=== PATIENT | female | born 1935 | race Caucasian/White ===

== ENCOUNTER 2022-07-01 15:53 | Inpatient (IN) ==
--- NOTE | 2022-07-01 15:59 | Emergency Department Note ---
Impression & Plan Complete heart block, Chronic anticoagulation, Elevated troponin I level, Bradycardia, CHI (closed head injury), Syncope ED Provider Note NAME: RAISA HARRIS AGE: 86 SEX: F : 1935 ARRIVES VIA: Ambulance INFORMANT: Patient, ED PROVIDER(S): Christiano Heaton MD CHIEF COMPLAINT: Syncope, head injury, bradycardic MEDICAL DECISION MAKING: Patient presents due to concern for bradycardia and associated syncope. IV was established blood work was obtained CT of the head cervical spine and face ordered. EKG does show concern for complete heart block. Pacer pads were placed. I did speak and send the EKG to Dr. Gutierrez stated that he would be available for a pacemaker to be completed over the weekend if needed. Patient i s awake alert and following commands. Do not believe she requires an emergent pacemaker at this time. The patient's blood work shows a normal white count H&H and platelet count. The patient's kidney function is unremarkable with normal electrolytes. Patient's initial troponin is 566 but the patient has no chest pains or shortness of breath. Chest x-ray shows cardiomegaly. There is a 13 mm nodular density over the right lung base. Indeterminate. Head CT is negative. Face CT shows possible age-indeterminate irregularity of the nasal bone. Otherwise no fracture. Cervical spine CT is negative for fracture or dislocation. I did speak with the on-call hospitalist service Dr. Aguiar and the patient was admitted to the medicine service. Critical Care: I have personally spent 35 minutes of critical care time in direct management of this patient. This includes bedside care, interpretation of diagnostic studies, and testing, discussion with consultants, patient, and family members, and other require inpatient management activities. This 35 minutes is in excess of all separately billable procedures. Prior /Outside records reviewed: Did review the patient's wellness visit from [facility] but not yet been completed. Patient did have a wellness visit completed March 2022. Patient is a known history of A-fib on Xarelto hypertension PVD bradycardia. Patient's med list does show that the patient takes hydrochlorothiazide losartan and Xarelto. Differential diagnosis: Vasovagal event, dehydration, infection, hypoglycemia, electrolyte abnormalities, arrhythmia, pulmonary embolism, seizure, toxic, ICH among others were considered. Diagnostics, as interpreted by me: ECG: Complete heart block, bradycardic, ventricular rate of 31, wide QRS, prolonged QT. Cardiac monitoring: An order was placed for continuous cardiac monitoring. The monitor shows a rate of 35 with bradycardia rhythm. Patient was placed on pulse oximetry Medical decision rules: None Imaging studies: See below HPI: Patient presents from clinic due to concern for syncope and bradycardia. The patient reportedly had a syncopal event yesterday and states that she did not have any presyncopal symptoms. Patient states that she passed out and did hit her head. Patient does have some mild discomfort to the neck and head area. The patient does take Xarelto for known history of A-fib. The patient denies any chest pains or shortness of breath no abdominal pain no back pain or extremity pain. Patient denies any fevers chills nausea or vomiting. The patient did present for outpatient follow-up today due to the syncope but had a second syncopal event EMS was called and presented here for further evaluation treatment. PAST MEDICAL HISTORY: See Below PAST SURGICAL HISTORY: See Below SOCIAL HISTORY: See Below HOME MEDICATIONS: See Below ALLERGIES: See Below VITALS: See Below PHYSICAL EXAMINATION: GENERAL: NAD, wearing a mask, non-toxic. EYE EXAM: Normal conjunctiva. PERRL, no anisocoria and EOM's grossly intact w/o pain. Head: Periorbital ecchymosis. No significant TTP or obvious deformity. NECK: Supple, no nuchal rigidity, no adenopathy, mild midline mid cervical disc omfort without obvious step-offs. No signs of meningismus. FROM of the neck with good chin to chest and neck extension. No stridor. LUNGS: Clear to auscultation. Normal chest wall mechanics. HEART: Bradycardic, no MRG. ABDOMEN: Abdomen soft, non-tender, normo-active bowel sounds, no masses, no rebo und or guarding. BACK: No CVA TTP. SKIN: No rashes and no bruising. UPPER EXTREMITIES: Upper extremities are grossly normal. LOWER EXTREMITIES: Grossly normal, no edema. NEURO EXAM: A&O x3, cranial nerves II-XII grossly intact, normal speech, moves all 4 extremities. Past Med/Surg History Medical History Bradycardia Chronic anticoagulation Hx of breast cancer First Dx age 53, Completed Radiotherapy and Tamoxifen Recurrence 2014. Left mastectomy performed Followed by Oncology Hypertension Macular degeneration Followed by Ophthalmology Surgical History Hx of appendectomy Hx of cataract surgery Hx of hysterectomy Hx of left mastectomy (~2014) Family History Aunt Breast cancer Father Esophageal cancer Daughter Ovarian cancer Denies family history of Prostate cancer Myocardial infarction Lung cancer Colorectal cancer Social History Smoking Status: Former smoker Tobacco Type: Cigarettes Age Started Using Tobacco: 14; Age Quit Using Tobacco: 38; packs per day: 1; Smoking End Date: 48 years ago; Second Hand Exposure: No; Hx Alcohol Use: Yes Alcohol type: wine Alcohol Intake Frequency: 4 or More x per/Week Alcohol Intake Frequency Comment: 2 glasses a night with dinner Hx Substance Use: No Preferred Language: [place]ese Communication Ability: Effective Visual Impairment: Diminished Hearing Ability: Normal Speech Language Pathologist Assistant Required: No Beliefs That Will Affect Care: None marital status: / Current Living Situation: Alone current occupational status: retired How many Children do You have: 3 Other Information That Helps Us Care for You: No Feels Safe at Home: Yes Childhood Exposure to Second-Hand Smoke: Yes (father smoked ) caffeine: Yes (drinks coffee every morning ) during the past year weight has: remained stable Dental Care, Regularly: No Physical Activity Frequency: Does not Exercise Seatbelt Use: always Sunscreen Use: Yes (when she remembers to ) Do you think of yourself as: straight/heterosexual Assistive Devices: Denture - Upper and Glasses Allergies Allergies Allergy/AdvReac Type Severity Reaction Status Date / Time No Known Allergies Allergy Verified 07/01/22 14:49 Home Meds Home Medications Medication Instructions Recorded Confirmed melatonin 12 mg tablet mg PO .qhs 03/22/22 07/01/22 Previous Rx's Medication Instructions Recorded losartan 25 mg tablet 25 mg PO DAILY #90 tabs 07/12/21 anastrozole 1 mg tablet 1 mg PO DAILY #90 tabs 07/14/21 hydrochlorothiazide 25 mg tablet See Rx Instructions .Route 04/05/22 .COMPLEX #45 tabs rivaroxaban 15 mg tablet (Xarelto) 15 mg PO DAILY #30 tabs 04/12/22 Results & Data (ED) Vital Signs Vital Signs - 24 hr 07/01/22 16:04 07/01/22 16:05 Pulse Rate 31 L 31 L Respiratory Rate 12 Respiratory Effort / Characteristics Non-Labored Spontaneous Respiratory Depth Normal Respiratory Pattern Regular Blood Pressure 136/57 L Blood Pressure Mean 83 Pulse Oximetry 95 Oxygen Delivery Method Room Air Sepsis Recent Fever Within 48 Hours No Sepsis New/Unexplained Change in Mental Status No Sepsis Action Taken by Nursing No Action Required Home Medications Current Medication List: was personally reviewed by me Laboratory Data Attestation: I reviewed the patient's lab results. 07/01/22 16:08 07/01/22 16:08 Lab Results 07/01/22 07/01/22 07/01/22 Range/Units 16:03 16:08 16:08 WBC 7.41 (4.8-10.8) K/ul RBC 4.21 (4.20-5.40) M/uL Hgb 13.1 (12.0-16.0) g/dl Hct 39.8 (37.0-47.0) % MCV 94.5 (80.0-100.0) fL MCH 31.1 (25.0-34.0) pg MCHC 32.9 (32.0-36.0) g/dL RDW Std Deviation 47.0 H (36.4-46.3) fL RDW Coeff of Lilia 13.7 (11.5-14.5) % Plt Count 222 (130-400) K/uL MPV 10.3 (9.4-12.4) fL Immature Gran % (Auto) 0.4 % Neut % (Auto) 66.1 % Lymph % (Auto) 24.4 % [place] % (Auto) 7.2 % Eos % (Auto) 1.2 % Baso % (Auto) 0.7 % Neut # (Auto) 4.90 (1.40-6.50) K/uL Lymph # (Auto) 1.81 (1.2-3.4) K/uL [place] # (Auto) 0.53 (0.11-0.59) K/uL Eos # (Auto) 0.09 (0-0.50) K/uL Baso # (Auto) 0.05 (0-0.2) K/uL Immature Gran # (Auto) 0.03 (0.01-0.20) K/uL PT 10.9 (9.0-12.0) Seconds INR 1.0 (0.9-1.1) APTT 27.6 (21.0-31.0) Seconds PTT Ratio 1.0 Sodium (136-145) mmol/L Potassium (3.5-5.1) mmol/L Chloride (98-107) mmol/L Carbon Dioxide (21-32) mmol/L Anion Gap (3-11) BUN (6-23) mg/dl Creatinine (0.6-1.2) mg/dl Est Cr Clr Drug Dosing ml/min Est GFR ( Amer) ml/min Est GFR (Non-Af Amer) ml/min BUN/Creatinine Ratio (10-20) Glucose (70-99(Fasting)) mg/dl POC Glucose 122 H (70-99) mg/dl Calcium (8.5-10.1) mg/dl Phosphorus (2.5-4.9) mg/dl Magnesium (1.7-2.4) mg/dl Total Bilirubin (0.2-1.0) mg/dl AST (13-39) U/L ALT (7-52) U/L Alkaline Phosphatase (34-104) U/L Troponin I High Sens (0-14) pg/ml Total Protein (6.0-8.3) gm/dl Albumin (3.4-5.0) gm/dl Globulin (2.5-4.0) gm/dl Albumin/Globulin Ratio (0.9-2) TSH (0.300-4.500) uIu/ml SARS-CoV-2, RNA, NAAT (NEGATIVE) 07/01/22 07/01/22 07/01/22 Range/Units 16:08 16:08 16:26 WBC (4.8-10.8) K/ul RBC (4.20-5.40) M/uL Hgb (12.0-16.0) g/dl Hct (37.0-47.0) % MCV (80.0-100.0) fL MCH (25.0-34.0) pg MCHC (32.0-36.0) g/dL RDW Std Deviation (36.4-46.3) fL RDW Coeff of Lilia (11.5-14.5) % Plt Count (130-400) K/uL MPV (9.4-12.4) fL Immature Gran % (Auto) % Neut % (Auto) % Lymph % (Auto) % [place] % (Auto) % Eos % (Auto) % Baso % (Auto) % Neut # (Auto) (1.40-6.50) K/uL Lymph # (Auto) (1.2-3.4) K/uL [place] # (Auto) (0.11-0.59) K/uL Eos # (Auto) (0-0.50) K/uL Baso # (Auto) (0-0.2) K/uL Immature Gran # (Auto) (0.01-0.20) K/uL PT (9.0-12.0) Seconds INR (0.9-1.1) APTT (21.0-31.0) Seconds PTT Ratio Sodium 138 (136-145) mmol/L Potassium 3.6 (3.5-5.1) mmol/L Chloride 102 (98-107) mmol/L Carbon Dioxide 27 (21-32) mmol/L Anion Gap 9 (3-11) BUN 17 (6-23) mg/dl Creatinine 1.07 (0.6-1.2) mg/dl Est Cr Clr Drug Dosing 39.7 ml/min Est GFR ( Amer) 53.7 ml/min Est GFR (Non-Af Amer) 46.3 ml/min BUN/Creatinine Ratio 15.9 (10-20) Glucose 129 H (70-99(Fasting)) mg/dl POC Glucose (70-99) mg/dl Calcium 8.8 (8.5-10.1) mg/dl Phosphorus 3.1 (2.5-4.9) mg/dl Magnesium 2.3 (1.7-2.4) mg/dl Total Bilirubin 0.6 (0.2-1.0) mg/dl AST 30 (13-39) U/L ALT 18 (7-52) U/L Alkaline Phosphatase 65 (34-104) U/L Troponin I High Sens 566.5 H* (0-14) pg/ml Total Protein 6.8 (6.0-8.3) gm/dl Albumin 4.0 (3.4-5.0) gm/dl Globulin 2.8 (2.5-4.0) gm/dl Albumin/Globulin Ratio 1.4 (0.9-2) TSH 2.758 (0.300-4.500) uIu/ml SARS-CoV-2, RNA, NAAT NEGATIVE (NEGATIVE) Imaging Data Radiologist's Impression: Cervical Spine CT 07/01/22 16:07 CT SCAN OF THE CERVICAL SPINE CLINICAL HISTORY: Fall. Neck pain. COMPARISON STUDY: No priors. TECHNIQUE: CT scan of the cervical spine is performed from the skull base to the upper thoracic spine. Images are reviewed in the axial, sagittal, and coronal planes. IV contrast was not administered for this examination. A dose lowering technique was utilized adhering to the principles of ALARA. CT DOSE: 1778.53 mGy.cm FINDINGS: Skeletal structures: The skeletal structures are osteopenic. There is no evidence of fracture or subluxation involving the cervical spine. Vertebral body height is maintained. There is minimal anterolisthesis at C3-C4. Alignment is otherwise preserved. There is straightening of the cervical lordosis with reversal centered at C5. Anterior osteophytes are seen throughout. The odontoid process and lateral masses are intact. The atlantoaxial articulation is preserved noting productive degenerative change. The spinous processes appear in tact. There is moderate multilevel cervical spondylosis. Uncovertebral and facet arthropathy contribute to neural foraminal narrowing at several levels. Intervertebral discs: There is moderate to severe disc space narrowing at C4-C5 and C5-C6, C6-C7, and C7-T1. Mild narrowing is seen at the remaining cervical levels. Central canal: Widely patent. Soft tissues: The prevertebral and paraspinous soft tissues are within normal limits. Calvarium: The visualized calvarium at the skull base appears intact. Brain parenchyma: Partially visualized brain parenchyma at the skull base is within normal limits noting age-related involutional change. Sinuses and mastoids: The visualized paranasal sinuses are clear. The mastoid air cells are well pneumatized. Cerumen is noted in the external auditory canals. Lung apices: Clear as visualized. IMPRESSION: 1. There is no evidence of fracture or subluxation involving the cervical spine. 2. Osteopenia and spondylotic change as above. ACT 112: Negative or not required by law. Electronically signed by: Chaz Nunn M.D. 07/01/2022 4:[address] 07/01/22 16:07 CT facial bones wo con CLINICAL HISTORY: fall, head strike, raccoons eyes TECHNIQUE: Multidetector row helical CT of the maxillofacial bones was performed without administration of intravenous contrast, and processed with bone and soft tissue algorithms. Coronal and sagittal reformations were obtained. Automated dose lowering techniques and/or adjustment according to patient size were utilized for this exam. Comparison: None available at the time of this dictation. FINDINGS: There is irregularity of the nasal bone which may be chronic. The mandible is intact. The temporomandibular joints are anatomically aligned. Pterygoid plates are intact. Zygomatic arches are intact. The globes are normal and symmetric, without proptosis, obvious disruption or l ens dislocation. There is no orbital radiopaque foreign body. The orbital roa are intact. The retrobulbar fat is without evidence of disruption. Extraocular muscles are normal and symmetric. Optic nerve sheath complexes are normal in course and caliber. Imaged portions of the paranasal sinuses and mastoid air cells are clear. Mild fat stranding is seen in the left greater than right maxillary soft tissues. IMPRESSION: Irregularity of the nasal bones is age-indeterminate and correlation with point tenderness is recommended. Otherwise no acute fracture is seen. Mild soft tissue stranding is seen in the maxilla and nose. ACT 112: Negative or not required by law. Electronically signed by: Seb Villanueva M.D. 07/01/2022 4:[address] 07/01/22 16:07 CT SCAN OF THE BRAIN WITHOUT IV CONTRAST CLINICAL HISTORY: Head injury. COMPARISON STUDY: No priors. TECHNIQUE: Unenhanced axial CT scan of the brain is performed from the vertex to the skull base. A dose lowering technique was utilized adhering to the principles of ALARA. FINDINGS: Brain parenchyma: There is age-related involutional change noting moderate subcortical and periventricular microangiopathic disease. There is no hemorrhage, mass effect, or evidence of acute territorial ischemia by CT criteria. Jolly-white matter differentiation is preserved. No extra-axial fluid collection is seen. Ventricles, sulci, cisterns: Prominent secondary to involutional change. Intracranial vasculature: There is atherosclerotic calcification of the cavernous carotid arteries. Soft tissues: There is a small frontal scalp hematoma. Calvarium: The skeletal structures are osteopenic. No depressed calvarial fracture is seen. Sinuses and mastoids: The visualized paranasal sinuses are clear. The mastoid air cells are well pneumatized. Orbits: The bony orbits are grossly intact. IMPRESSION: There is no hemorrhage, mass effect, or evidence of acute territorial ischemia by CT criteria. ACT 112: Negative or not required by law. Electronically signed by: Chaz Nunn M.D. 07/01/2022 4:23 PM Chest X-Ray 07/01/22 16:08 SINGLE VIEW CHEST CLINICAL HISTORY: Syncope. FINDINGS: An AP, portable, upright chest radiograph is obtained. No prior studies are available for comparison at the time of dictation. The heart is enlarged in its atherosclerotic calcification of the thoracic aorta. The pulmonary vasculature is noncongested. Nonspecific interstitial thickening is likely chronic. There is bibasilar scarring/atelectasis. No airspace consolidation or large pleural effusion is identified. An indeterminant 13 mm nodular density projects over the right lung base. No pneumothorax is seen. The skeletal structures are osteopenic. The bony thorax is grossly intact. Surgical clips project over the the right axilla. A clip also projects over the left upper chest. IMPRESSION: 1. Cardiomegaly with no acute cardiopulmonary abnormality. 2. A 13 mm nodular density projects over the right lung base. This is indeterminant and may represent artifact/summation of shadows. Follow-up with a PA and lateral examination is recommended for reassessment. ACT 112: Negative or not required by law. Electronically signed by: Chaz Nunn M.D. 07/01/2022 4:51 PM Discharge Plan Visit Data Chief Complaint: Syncope Stated Complaint: SYNCOPE ED Provider: Christiano Heaton Discharge Problem: Complete heart block, Chronic anticoagulation, Elevated troponin I level, Daniel ycardia, CHI (closed head injury), Syncope Patient Disposition: Admitted As Inpatient Discharge Instructions Interventions: ED Discharge Assessment Last Done: 07/01/22 18:00
--- NOTE | 2022-07-01 16:26 | CT Scan Report ---
CT SCAN OF THE BRAIN WITHOUT IV CONTRAST CLINICAL HISTORY: Head injury. COMPARISON STUDY: No priors. TECHNIQUE: Unenhanced axial CT scan of the brain is performed from the vertex to the skull base. A do se lowering technique was utilized adhering to the principles of ALARA. FINDINGS: Brain parenchyma: There is age-related involutional change noting moderate subcortical and periventri cular microangiopathic disease. There is no hemorrhage, mass effect, or evidence of acute territorial ischemia by CT criteria. Jolly-white matter differentiation is preserved. No extra-axial fluid collec tion is seen. Ventricles, sulci, cisterns: Prominent secondary to involutional change. Intracranial vasculature: There is atherosclerotic calcification of the cavernous carotid arteries. Soft tissues: There is a small frontal scalp hematoma. Calvarium: The skeletal structures are osteopenic. No depressed calvarial fracture is seen. Sinuses and mastoids: The visualized paranasal sinuses are clear. The mastoid air cells are well pneu matized. Orbits: The bony orbits are grossly intact. IMPRESSION: There is no hemorrhage, mass effect, or evidence of acute territorial ischemia by CT margy sotomayor. ACT 112: Negative or not required by law. Electronically signed by: Chaz Nunn M.D. 07/01/2022 4:23 PM
--- NOTE | 2022-07-01 16:31 | CT Scan Report ---
CT SCAN OF THE CERVICAL SPINE CLINICAL HISTORY: Fall. Neck pain. COMPARISON STUDY: No priors. TECHNIQUE: CT scan of the cervical spine is performed from the skull base to the upper thoracic spine . Images are reviewed in the axial, sagittal, and coronal planes. IV contrast was not administered fo r this examination. A dose lowering technique was utilized adhering to the principles of ALARA. CT DOSE: 1778.53 mGy.cm FINDINGS: Skeletal structures: The skeletal structures are osteopenic. There is no evidence of fracture or subl uxation involving the cervical spine. Vertebral body height is maintained. There is minimal anteroli sthesis at C3-C4. Alignment is otherwise preserved. There is straightening of the cervical lordosis w ith reversal centered at C5. Anterior osteophytes are seen throughout. The odontoid process and later al masses are intact. The atlantoaxial articulation is preserved noting productive degenerative farmer e. The spinous processes appear intact. There is moderate multilevel cervical spondylosis. Uncoverteb ral and facet arthropathy contribute to neural foraminal narrowing at several levels. Intervertebral discs: There is moderate to severe disc space narrowing at C4-C5 and C5-C6, C6-C7, and C7-T1. Mild narrowing is seen at the remaining cervical levels. Central canal: Widely patent. Soft tissues: The prevertebral and paraspinous soft tissues are within normal limits. Calvarium: The visualized calvarium at the skull base appears intact. Brain parenchyma: Partially visualized brain parenchyma at the skull base is within normal limits not ing age-related involutional change. Sinuses and mastoids: The visualized paranasal sinuses are clear. The mastoid air cells are well pneu matized. Cerumen is noted in the external auditory canals. Lung apices: Clear as visualized. IMPRESSION: 1. There is no evidence of fracture or subluxation involving the cervical spine. 2. Osteopenia and spondylotic change as above. ACT 112: Negative or not required by law. Electronically signed by: Chaz Nunn M.D. 07/01/2022 4:28 PM
--- NOTE | 2022-07-01 16:32 | CT Scan Report ---
CT facial bones wo con CLINICAL HISTORY: fall, head strike, raccoons eyes TECHNIQUE: Multidetector row helical CT of the maxillofacial bones was performed without administrati on of intravenous contrast, and processed with bone and soft tissue algorithms. Coronal and sagittal reformations were obtained. Automated dose lowering techniques and/or adjustment according to patient size were utilized for this exam. Comparison: None available at the time of this dictation. FINDINGS: There is irregularity of the nasal bone which may be chronic. The mandible is intact. The temporomand ibular joints are anatomically aligned. Pterygoid plates are intact. Zygomatic arches are intact. The globes are normal and symmetric, without proptosis, obvious disruption or lens dislocation. Ther e is no orbital radiopaque foreign body. The orbital roa are intact. The retrobulbar fat is without evidence of disruption. Extraocular muscles are normal and symmetric. Optic nerve sheath complexes are normal in course and caliber. Imaged portions of the paranasal sinuses and mastoid air cells are clear. Mild fat stranding is seen in the left greater than right maxillary soft tissues. IMPRESSION: Irregularity of the nasal bones is age-indeterminate and correlation with point tenderness is recomme nded. Otherwise no acute fracture is seen. Mild soft tissue stranding is seen in the maxilla and nose . ACT 112: Negative or not required by law. Electronically signed by: Seb Villanueva M.D. 07/01/2022 4:31 PM
[2022-07-01 16:43] LABS: Basophils # (auto) 0.05 K/uL (0-0.2); Basophils % (auto) 0.7 %; Eosinophils # (auto) 0.09 K/uL (0-0.50); Eosinophils % (auto) 1.2 %; Hematocrit (blood only) 39.8 % (37.0-47.0); Hemoglobin 13.1 g/dl (12.0-16.0); Immature Granulocytes # (auto) 0.03 K/uL (0.01-0.20); Immature Granulocytes % (auto) 0.4 %; Lymphocytes # (auto) 1.81 K/uL (1.2-3.4); Lymphocytes % (auto) 24.4 %; Mean Corpuscular Hemoglobin 31.1 pg (25.0-34.0); Mean Corpuscular Hgb Conc 32.9 g/dL (32.0-36.0); Mean Corpuscular Volume 94.5 fL (80.0-100.0); Mean Platelet Volume 10.3 fL (9.4-12.4); Monocytes # (auto) 0.53 K/uL (0.11-0.59); Monocytes % (auto) 7.2 %; Neutrophils % (auto) 66.1 %; Platelet Count 222 K/uL (130-400); RDW Coefficient of Variation 13.7 % (11.5-14.5); Red Blood Count 4.21 M/uL (4.20-5.40); White Blood Count 7.41 K/ul (4.8-10.8)
[2022-07-01 16:46] LABS: Albumin Globulin Ratio 1.4 (0.9-2); BUN Creatinine Ratio 15.9 (10-20); Bilirubin,Total 0.6 mg/dl (0.2-1.0); Calcium 8.8 mg/dl (8.5-10.1); Creatinine Clr Calc Pharmacy 39.7 ml/min; Est GFR (African American) 53.7 ml/min; Est GFR (Non-African American) 46.3 ml/min; Globulin 2.8 gm/dl (2.5-4.0); Magnesium 2.3 mg/dl (1.7-2.4); Phosphorus 3.1 mg/dl (2.5-4.9); Potassium 3.6 mmol/L (3.5-5.1); Total Protein 6.8 gm/dl (6.0-8.3)
--- NOTE | 2022-07-01 16:53 | XRay Report ---
SINGLE VIEW CHEST CLINICAL HISTORY: Syncope. FINDINGS: An AP, portable, upright chest radiograph is obtained. No prior studies are available for c omparison at the time of dictation. The heart is enlarged in its atherosclerotic calcification of the thoracic aorta. The pulmonary vasculature is noncongested. Nonspecific interstitial thickening is li trev chronic. There is bibasilar scarring/atelectasis. No airspace consolidation or large pleural eff usion is identified. An indeterminant 13 mm nodular density projects over the right lung base. No pne umothorax is seen. The skeletal structures are osteopenic. The bony thorax is grossly intact. Surgica l clips project over the the right axilla. A clip also projects over the left upper chest. IMPRESSION: 1. Cardiomegaly with no acute cardiopulmonary abnormality. 2. A 13 mm nodular density projects over the right lung base. This is indeterminant and may represent artifact/summation of shadows. Follow-up with a PA and lateral examination is recommended for reasse ssment. ACT 112: Negative or not required by law. Electronically signed by: Chaz Nunn M.D. 07/01/2022 4:51 PM
[2022-07-01 17:04] LABS: Troponin I High Sensitivity 566.5 pg/ml (0-14)
--- NOTE | 2022-07-01 17:19 | History & Physical Report ---
Date of Service July 01, 2022 Assessment & Plan (1) Complete heart block: Plan: Bedrest Keep pacing pads on at all times. Given stability emergent temporary pacing wire not required at this time Consult cardiology - discussed with Dr Wolf and planning on pacemaker tomorrow. (2) Elevated troponin I level: Plan: Suspect secondary to CHB, HTN and syncopal episode. No symptoms suggestive of acute coronary syndrome. TTE (3) CHI (closed head injury): Plan: Possible nasal bone fracture - supportive care only (4) Syncope: Plan: Suspect secondary to CHB as above (5) Hypertension: Plan: Continue losartan, hold HCTZ pre-pacemaker insertion Hydralazine 5mg IV q4h PRN for sBP > 180 (6) Atrial fibrillation: Plan: Paroxysmal Hold Xarelto for pacemaker insertion Plan VTE Prophylaxis - hold Xarelto Diet - heart healthy, NPO after midnight Disposition - admit to PCU Admission and Anticipated Discharge Date Admission Date: July 01, 2022 History of Present Illness Primary Care Provider: Renato Pennington DO Yessi Martinez is an 86 year old female who presents to the ER due to syncope. Initial episode occurred while on the toilet yesterday around midday. [place] dizzy prior to losing consciousness and fell flat on her face. When she came to she reports there was a lot of blood. She managed to call her son who helped her get up and cleaned up. She arranged an appointment with her PCP office today but while in the car on the way there she had a further loss of consciousness episode and a convulsion followed by nausea following the episode. On arrival at her PCP office EMS were called and brought her to the ER. Only recent medication change has been her first injection of Prolia was on afternoon. No current infection signs or symptoms. No chest pain or shortness of breath. In the ER EKG was concerning for complete heart block however she was asymptomatic while in bed. ER provider discussed with Dr Wolf and no plan for temporary pacing wire at this time given she is stable. Of note she had a monitor in December 2021 showing 3 second pauses due to non-conducted p waves at that time. She is on Xarelto for paroxysmal atrial fibrillation which she last took around 9am yesterday. Allergies Allergy/AdvReac Type Severity Reaction Status Date / Time No Known Allergies Allergy Verified 07/01/22 14:49 Home Medications Medication Instructions Recorded Confirmed Type losartan 25 mg tablet 25 mg PO DAILY #90 tabs 07/12/21 07/01/22 Rx anastrozole 1 mg tablet 1 mg PO DAILY #90 tabs 07/14/21 07/01/22 Rx melatonin 12 mg tablet mg PO .qhs 03/22/22 07/01/22 History hydrochlorothiazide 25 mg tablet See Rx Instructions .Route 04/05/22 07/01/22 Rx .COMPLEX #45 tabs rivaroxaban 15 mg tablet (Xarelto) 15 mg PO DAILY #30 tabs 04/12/22 07/01/22 Rx Past Med/Surg History Medical History Bradycardia Chronic anticoagulation Hx of breast cancer First Dx age 53, Completed Radiotherapy and Tamoxifen Recurrence 2014. Left mastectomy performed Followed by Oncology Hypertension Macular degeneration Followed by Ophthalmology Surgical History Hx of appendectomy Hx of cataract surgery Hx of hysterectomy Hx of left mastectomy (~2014) Family History Aunt Breast cancer Father Esophageal cancer Daughter Ovarian cancer Denies family history of Prostate cancer Myocardial infarction Lung cancer Colorectal cancer Social History Smoking Status: Former smoker Tobacco Type: Cigarettes Age Started Using Tobacco: 14; Age Quit Using Tobacco: 38; packs per day: 1; Smoking End Date: 48 years ago; Second Hand Exposure: No; Hx Alcohol Use: Yes Alcohol type: wine Alcohol Intake Frequency: 4 or More x per/Week Alcohol Intake Frequency Comment: 2 glasses a night with dinner Hx Substance Use: No Preferred Language: Romanian Communication Ability: Effective Visual Impairment: Diminished Hearing Ability: Normal Biological Technician Required: No Beliefs That Will Affect Care: None marital status: / Current Living Situation: Alone current occupational status: retired How many Children do You have: 3 Other Information That Helps Us Care for You: No Feels Safe at Home: Yes Childhood Exposure to Second-Hand Smoke: Yes (father smoked ) caffeine: Yes (drinks coffee every morning ) during the past year weight has: remained stable Dental Care, Regularly: No Physical Activity Frequency: Does not Exercise Seatbelt Use: always Sunscreen Use: Yes (when she remembers to ) Do you think of yourself as: straight/heterosexual Assistive Devices: Denture - Upper and Glasses Review of Systems Review of Systems: All systems reviewed & are unremarkable except as noted in HPI & below Physical Exam Constitutional: WD/WN, vitals as above Eyes: periorbital ecchymosis ENMT: nasal ecchymosis with pain on palpation of nasal bridge Respiratory: normal respiratory effort, lungs clear to auscultation Cardiovascular: Rate/Rhythm: regular rhythm and + bradycardic Heart Sounds: no murmur Extremities: normal capillary refill; no calf tenderness and no pedal edema Gastrointestinal (Abdomen): normal bowel sounds, soft, nontender, no hepatosplenomegaly Musculoskeletal: no cyanosis or clubbing, extremities motor strength 5/5 Skin: no rashes, warm and dry Neurologic: moves all extremities and awake; not confused Psychiatric: A+Ox3, euthymic affect Results & Data Results & Data ([facility]) Vital Signs (Past 12 Hours) Vital Signs Pulse Resp BP Pulse Ox O2 Del Method 07/01/22 16:05 31 L 07/01/22 16:04 31 L 12 136/57 L 95 Room Air Laboratory Results Abnormal lab results 07/01/22 07/01/22 07/01/22 Range/Units 16:03 16:08 16:08 RDW Std Deviation 47.0 H (36.4-46.3) fL Glucose 129 H (70-99(Fasting)) mg/dl POC Glucose 122 H (70-99) mg/dl Troponin I High Sens 566.5 H* (0-14) pg/ml Diagnostic Findings SINGLE VIEW CHEST CLINICAL HISTORY: Syncope. FINDINGS: An AP, portable, upright chest radiograph is obtained. No prior studies are available for comparison at the time of dictation. The heart is enlarged in its atherosclerotic calcification of the thoracic aorta. The pulmonary vasculature is noncongested. Nonspecific interstitial thickening is likely chronic. There is bibasilar scarring/atelectasis. No airspace consolidation or large pleural effusion is identified. An indeterminant 13 mm nodular density projects over the right lung base. No pneumothorax is seen. The skeletal structures are osteopenic. The bony thorax is grossly intact. Surgical clips project over the the right axilla. A clip also projects over the left upper chest. IMPRESSION: 1. Cardiomegaly with no acute cardiopulmonary abnormality. 2. A 13 mm nodular density projects over the right lung base. This is indeterminant and may represent artifact/summation of shadows. Follow-up with a PA and lateral examination is recommended for reassessment. CT SCAN OF THE BRAIN WITHOUT IV CONTRAST CLINICAL HISTORY: Head injury. COMPARISON STUDY: No priors. TECHNIQUE: Unenhanced axial CT scan of the brain is performed from the vertex to the skull base. A dose lowering technique was utilized adhering to the principles of ALARA. FINDINGS: Brain parenchyma: There is age-related involutional change noting moderate subcortical and periventricular microangiopathic disease. There is no hemorrhage, mass effect, or evidence of acute territorial ischemia by CT criteria. Jolly-white matter differentiation is preserved. No extra-axial fluid collection is seen. Ventricles, sulci, cisterns: Prominent secondary to involutional change. Intracranial vasculature: There is atherosclerotic calcification of the cavernous carotid arteries. Soft tissues: There is a small frontal scalp hematoma. Calvarium: The skeletal structures are osteopenic. No depressed calvarial fracture is seen. Sinuses and mastoids: The visualized paranasal sinuses are clear. The mastoid air cells are well pneumatized. Orbits: The bony orbits are grossly intact. IMPRESSION: There is no hemorrhage, mass effect, or evidence of acute territorial ischemia by CT criteria. CT facial bones wo con CLINICAL HISTORY: fall, head strike, raccoons eyes TECHNIQUE: Multidetector row helical CT of the maxillofacial bones was performed without administration of intravenous contrast, and processed with bone and soft tissue algorithms. Coronal and sagittal reformations were obtained. Automated dose lowering techniques and/or adjustment according to patient size were utilized for this exam. Comparison: None available at the time of this dictation. FINDINGS: There is irregularity of the nasal bone which may be chronic. The mandible is intact. The temporomandibular joints are anatomically aligned. Pterygoid plates are intact. Zygomatic arches are intact. The globes are normal and symmetric, without proptosis, obvious disruption or lens dislocation. There is no orbital radiopaque foreign body. The orbital roa are intact. The retrobulbar fat is without evidence of disruption. Extraocular muscles are normal and symmetric. Optic nerve sheath complexes are normal in course and caliber. Imaged portions of the paranasal sinuses and mastoid air cells are clear. Mild fat stranding is seen in the left greater than right maxillary soft tissues. IMPRESSION: Irregularity of the nasal bones is age-indeterminate and correlation with point tenderness is recommended. Otherwise no acute fracture is seen. Mild soft tissue stranding is seen in the maxilla and nose. CT SCAN OF THE CERVICAL SPINE CLINICAL HISTORY: Fall. Neck pain. COMPARISON STUDY: No priors. TECHNIQUE: CT scan of the cervical spine is performed from the skull base to the upper thoracic spine. Images are reviewed in the axial, sagittal, and coronal planes. IV contrast was not administered for this examination. A dose lowering technique was utilized adhering to the principles of ALARA. CT DOSE: 1778.53 mGy.cm FINDINGS: Skeletal structures: The skeletal structures are osteopenic. There is no evidence of fracture or subluxation involving the cervical spine. Vertebral body height is maintained. There is minimal anterolisthesis at C3-C4. Alignment is otherwise preserved. There is straightening of the cervical lordosis with reversal centered at C5. Anterior osteophytes are seen throughout. The odontoid process and lateral masses are intact. The atlantoaxial articulation is preserved noting productive degenerative change. The spinous processes appear intact. There is moderate multilevel cervical spondylosis. Uncovertebral and facet arthropathy contribute to neural foraminal narrowing at several levels. Intervertebral discs: There is moderate to severe disc space narrowing at C4-C5 and C5-C6, C6-C7, and C7-T1. Mild narrowing is seen at the remaining cervical levels. Central canal: Widely patent. Soft tissues: The prevertebral and paraspinous soft tissues are within normal limits. Calvarium: The visualized calvarium at the skull base appears intact. Brain parenchyma: Partially visualized brain parenchyma at the skull base is within normal limits noting age-related involutional change. Sinuses and mastoids: The visualized paranasal sinuses are clear. The mastoid air cells are well pneumatized. Cerumen is noted in the external auditory canals. Lung apices: Clear as visualized. IMPRESSION: 1. There is no evidence of fracture or subluxation involving the cervical spine. 2. Osteopenia and spondylotic change as above. Medications Administered ER Medications Given: None ECG Indication: bradycardia Rate (beats per minute): 31 Rhythm: other (complete heart block) Comparison ECG Date: no prior available Code Status & VTE Plan Code Status Full VTE Prophylaxis Plan VTE Prophylaxis will be ordered: Yes PG Care Time/CCT Total # of Minutes Spent Total Time Spent with Patient: Total time spent is greater than 50% in coordination of care (as documented) at patient's floor/unit and/or counseling patient: Coding Level of Care Code 39045 INT INP/OBS CARE 3/75MIN Diagnoses Complete heart block I44.2 Elevated troponin I level R77.8 CHI (closed head injury) S09.90XA Syncope R55 Hypertension I10 Atrial fibrillation I48.91
[2022-07-01 17:21] LABS: Partial Thromboplastin Time 27.6 Seconds (21.0-31.0); Prothrombin Time 10.9 Seconds (9.0-12.0)
[2022-07-01] MEDS ORDERED: hydrALAZINE HCL 20 MG/ML VIAL IV PRN (22:52)
--- NOTE | 2022-07-02 06:20 | Cardiology Consultation ---
Date of Consultation July 02, 2022 Assessment & Plan (1) Syncope: (2) Complete heart block: (3) Elevated troponin I level: (4) Chronic anticoagulation: (5) Atrial fibrillation: Plan 1. Syncope: Her syncope is evidently due to complete heart block, probably a delay in initiation of her escape rhythm as a specific cause as she is hemodynamically stable and complete heart block with a heart rate in the 30s. 2. Complete heart block: She presents in complete heart block, there are no clear reversible reasons, this has remained and she is on no medications to cause it and therefore requires a pacemaker. 3. Paroxysmal atrial fibrillation: She has a history of paroxysmal atrial fibrillation but is not on rate controlling medications and I suspect her burden is quite low. It has not been identified recently as near as I can tell from the chart. She is not in atrial fibrillation now. 4. Anticoagulation: She does take Xarelto, I understand the last dose of Xarelto was the morning of June 30, 2022 therefore will be 48 hours prior to pacemaker implantation. This is the appropriate interval. 5. Elevated troponin: Her troponin is mildly elevated and stable, this would be due to her low heart rate, there is no evidence of an acute ischemic event. Prior to pacemaker implantation I discussed the indications, procedure, risks and alternatives of pacemaker implantation with her and she understood and agreed to proceed. Consent obtained. The indications, procedure, risks and alternatives of conscious sedation were also discussed, consent for sedation also obtained. History of Present Illness Reason for Consultation: Complete heart block Attending Physician: Westley Aguiar MD History of Present Illness This is an 86-year-old woman with a history of breast cancer, hypertension and atrial fibrillation. She does take Xarelto for her atrial fibrillation and I believe her last dose was on the morning of June 30, 2022. I do not know her atrial fibrillation history, she is aware of it but does not know details and apparently was started on Eliquis in [place], subsequently switched to Xarelto. She is on no rate controlling medications due to baseline bradycardia. She did have a Holter monitor performed on December 23 through December 27, 2021 which did not show any atrial fibrillation but showed a heart rate range from 27 to 99 bpm with an average of 43. There were frequent pauses, the longest of which was just under 3 seconds. She has not had symptoms of bradycardia until recently and I suspect has a low atrial fibrillation burden. She presented to the emergency room on July 01, 2022 having had a syncopal event on June 30, 2022, presented to her PCP and had another syncopal event was brought to the emergency room. In the emergency room she was noted to be in complete heart block with a slow junctional escape rhythm. She was alert and cooperative in the emergency room and did not require external pacing. She did however remain in complete heart block in the emergency room. She was therefore admitted to telemetry. At the time of my evaluation this morning prior to pacemaker implantation she was feeling well, supine she had no cardiovascular symptoms. She reiterated lack of symptoms until presenting with syncope the day before presentation here. Allergies Allergy/AdvReac Type Severity Reaction Status Date / Time No Known Allergies Allergy Verified 07/01/22 14:49 Home Medications Medication Instructions Recorded Confirmed Type losartan 25 mg tablet 25 mg PO DAILY #90 tabs 07/12/21 07/01/22 Rx anastrozole 1 mg tablet 1 mg PO DAILY #90 tabs 07/14/21 07/01/22 Rx melatonin 12 mg tablet mg PO .qhs 03/22/22 07/01/22 History hydrochlorothiazide 25 mg tablet See Rx Instructions .Route 04/05/22 07/01/22 Rx .COMPLEX #45 tabs rivaroxaban 15 mg tablet (Xarelto) 15 mg PO DAILY #30 tabs 04/12/22 07/01/22 Rx Patient History Medical History Bradycardia Chronic anticoagulation Hx of breast cancer First Dx age 53, Completed Radiotherapy and Tamoxifen Recurrence 2014. Left mastectomy performed Followed by Oncology Hypertension Macular degeneration Followed by Ophthalmology Surgical History Hx of appendectomy Hx of cataract surgery Hx of hysterectomy Hx of left mastectomy (~2014) Family History Aunt Breast cancer Father Esophageal cancer Daughter Ovarian cancer Denies family history of Prostate cancer Myocardial infarction Lung cancer Colorectal cancer Social History Smoking Status: Former smoker Tobacco Type: Cigarettes Age Started Using Tobacco: 14; Age Quit Using Tobacco: 38; packs per day: 1; Smoking End Date: 48 years ago; Second Hand Exposure: No; Hx Alcohol Use: Yes Alcohol type: wine Alcohol Intake Frequency: 4 or More x per/Week Alcohol Intake Frequency Comment: 2 glasses a night with dinner Hx Substance Use: No Preferred Language: Croatian Communication Ability: Effective Visual Impairment: Diminished Hearing Ability: Normal Brass Wind Instrument Maker Required: No Beliefs That Will Affect Care: None marital status: / Current Living Situation: Alone current occupational status: retired How many Children do You have: 3 Other Information That Helps Us Care for You: No Feels Safe at Home: Yes Childhood Exposure to Second-Hand Smoke: Yes (father smoked ) caffeine: Yes (drinks coffee every morning ) during the past year weight has: remained stable Dental Care, Regularly: No Physical Activity Frequency: Does not Exercise Seatbelt Use: always Sunscreen Use: Yes (when she remembers to ) Do you think of yourself as: straight/heterosexual Assistive Devices: Denture - Upper and Glasses Review of Systems Review of Systems: All systems reviewed & are unremarkable except as noted in HPI & below Physical Exam Physical Exam: Constitutional: Alert, cooperative and in no distress. HEENT: Unremarkable except for bruising around her eyes Neck: No jugular venous distention, carotid pulses are very slow but otherwise normal and equal bilaterally without bruits. Pulmonary: Clear to auscultation bilaterally. Cardiac: Regular very slow rhythm with no murmur, gallop or rub. Abdomen: Soft, nontender with normal bowel sounds. Extremities: No edema. Distal pulses intact. Neurologic: No focal findings. Gait was not tested Skin: No rash or petechiae. Ecchymosis on her face, especially around her eyes. Results & Data ([facility]) Vital Signs (Past 12 Hours) Vital Signs Temp Pulse Pulse Resp BP Pulse Ox O2 Del Method 07/02/22 03:12 36.9 C 36 L 16 141/50 H 94 Room Air 07/01/22 22:44 36.6 C 38 L 18 171/67 H 94 Room Air 07/01/22 18:25 32 L 07/01/22 18:25 36.6 C 33 L 16 185/113 H 97 Room Air Laboratory Results Cardiac Enzymes 07/01/22 07/01/22 07/02/22 Range/Units 16:08 18:43 00:52 AST 30 (13-39) U/L Troponin I High Sens 566.5 H* 896.1 H* D 801.0 H* (0-14) pg/ml Coagulation 07/01/22 Range/Units 16:08 PT 10.9 (9.0-12.0) Seconds APTT 27.6 (21.0-31.0) Seconds CBC 07/01/22 Range/Units 16:08 WBC 7.41 (4.8-10.8) K/ul RBC 4.21 (4.20-5.40) M/uL Hgb 13.1 (12.0-16.0) g/dl Hct 39.8 (37.0-47.0) % Plt Count 222 (130-400) K/uL Neut # (Auto) 4.90 (1.40-6.50) K/uL Lymph # (Auto) 1.81 (1.2-3.4) K/uL [place] # (Auto) 0.53 (0.11-0.59) K/uL Eos # (Auto) 0.09 (0-0.50) K/uL Baso # (Auto) 0.05 (0-0.2) K/uL Comprehensive Metabolic Panel 07/01/22 Range/Units 16:08 Sodium 138 (136-145) mmol/L Potassium 3.6 (3.5-5.1) mmol/L Chloride 102 (98-107) mmol/L Carbon Dioxide 27 (21-32) mmol/L BUN 17 (6-23) mg/dl Creatinine 1.07 (0.6-1.2) mg/dl Glucose 129 H (70-99(Fasting)) mg/dl Calcium 8.8 (8.5-10.1) mg/dl AST 30 (13-39) U/L ALT 18 (7-52) U/L Alkaline Phosphatase 65 (34-104) U/L Total Protein 6.8 (6.0-8.3) gm/dl Albumin 4.0 (3.4-5.0) gm/dl Intake and Output 07/01/22 07/01/22 07/02/22 14:59 22:59 06:59 Intake Total 260 / 260 Output Total 225 / 825 600 / 825 Balance 35 / -565 -600 / -565 Intake: Oral 260 / 260 Output: Urine 75 / 75 Other 150 / 750 600 / 750 Other: # Unmeasured Voids 1 Weight 92.6 kg 92.6 kg Weight Measurement Method [facility] in [facility] Patient Weight 07/02/22 06:59 Weight 92.6 kg Diagnostic Findings Her electrocardiogram shows sinus bradycardia with complete heart block, a ventricular escape rhythm with a right bundle branch block pattern at 31 bpm. PG Care Time/CCT Total # of Minutes Spent Total Time Spent with Patient: Total time spent is greater than 50% in coordination of care (as documented) at patient's floor/unit and/or counseling patient: Coding Level of Care Code 55942 INT INP/OBS CARE 3/75MIN Diagnoses Syncope R55 Encounter type: initial encounter Complete heart block I44.2 Elevated troponin I level R77.8 Chronic anticoagulation Z79.01 Atrial fibrillation I48.0 Atrial fibrillation type: paroxysmal (1) Syncope Encounter type: initial encounter (5) Atrial fibrillation Atrial fibrillation type: paroxysmal Qualified Code(s): I48.0 - Paroxysmal atrial fibrillation
[2022-07-02] MEDS ORDERED: MIDAZOLAM HCL 5 MG/ML 1 ML VIAL ONE (06:41)
[2022-07-02] MEDS ORDERED: fentaNYL citrate 100 MCG/2 ML VIAL ONE (06:41)
[2022-07-02 06:49] LABS: Basophils # (auto) 0.06 K/uL (0-0.2); Basophils % (auto) 0.9 %; Eosinophils # (auto) 0.11 K/uL (0-0.50); Eosinophils % (auto) 1.6 %; Hematocrit (blood only) 36.8 % (37.0-47.0); Hemoglobin 12.4 g/dl (12.0-16.0); Immature Granulocytes # (auto) 0.02 K/uL (0.01-0.20); Immature Granulocytes % (auto) 0.3 %; Lymphocytes % (auto) 30.9 %; Mean Corpuscular Hemoglobin 31.6 pg (25.0-34.0); Mean Corpuscular Hgb Conc 33.7 g/dL (32.0-36.0); Mean Corpuscular Volume 93.9 fL (80.0-100.0); Mean Platelet Volume 10.2 fL (9.4-12.4); Monocytes # (auto) 0.62 K/uL (0.11-0.59); Monocytes % (auto) 9.1 %; Neutrophils # (auto) 3.88 K/uL (1.40-6.50); Neutrophils % (auto) 57.2 %; Platelet Count 211 K/uL (130-400); RDW Coefficient of Variation 13.6 % (11.5-14.5); RDW Standard Deviation 46.5 fL (36.4-46.3); Red Blood Count 3.92 M/uL (4.20-5.40); White Blood Count 6.79 K/ul (4.8-10.8)
[2022-07-02] MEDS ORDERED: LIDOCAINE 1% LOCAL 20 ML VIAL ONE (06:55)
[2022-07-02] MEDS ORDERED: WATER, STERILE FOR INJ 10 ML VIAL ONE (06:56)
[2022-07-02] MEDS ORDERED: VANCOMYCIN HCL 1000MG/20ML VIAL ONE (06:56)
[2022-07-02] MEDS ORDERED: ceFAZolin 330 MG/ML 1 GM VIAL ONE (06:57)
[2022-07-02 07:06] LABS: BUN Creatinine Ratio 18.4 (10-20); Calcium 8.5 mg/dl (8.5-10.1); Creatinine Clr Calc Pharmacy 42.9 ml/min; Est GFR (African American) 59.7 ml/min; Est GFR (Non-African American) 51.5 ml/min; Potassium 3.6 mmol/L (3.5-5.1)
--- NOTE | 2022-07-02 07:15 | Pre Anesthesia Assessment ---
Date of Service July 02, 2022 Pre Sedation Assessment Vital Signs Temp Pulse Pulse Resp BP BP Pulse Ox 07/02/22 03:12 36.9 C 36 L 16 141/50 H 94 07/01/22 22:44 36.6 C 38 L 18 171/67 H 94 07/01/22 18:25 32 L 07/01/22 18:25 36.6 C 33 L 16 185/113 H 97 07/01/22 16:05 31 L 07/01/22 16:04 31 L 12 136/57 L 95 O2 Del Method 07/02/22 03:12 Room Air 07/01/22 22:44 Room Air 07/01/22 18:25 07/01/22 18:25 Room Air 07/01/22 16:05 07/01/22 16:04 Room Air Cardiovascular + regular rate and + bradycardic Respiratory normal respiratory effort, lungs clear to auscultation Pre-Sedation Airway Assessment Smoking Status: Former smoker Mallampati Class: II ASA: ASA4 NPO Status Date of Last Intake of Fluids: 07/01/22 Date of Last Intake of Solid Food: 07/01/22 Procedure Planning Contraindications for Sedation: none Current Medications Reviewed: Yes Notes The planned sedation has been discussed with the patient. Informed Consent was obtained. I have identified the patient, determined the appropriateness of sedation and have assessed the patient immediately prior to the procedure. All medicine(s) and interventions are by my order.
[2022-07-02] MEDS ORDERED: BACITRACIN OINT 0.9 GM PKT ONE (08:27)
--- NOTE | 2022-07-02 08:44 | Electrophysiology Report ---
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 The left prepectoral region was anesthetized with 1% lidocaine local anesthetic and left axillary venipuncture was performed by percutaneous technique and a guidewire placed through the left subclavian vein into the superior vena cava. The area was further infiltrated with 1% lidocaine local anesthetic and a 5 cm incision was made parallel to the left clavicle and 2 cm below it and carried down to the anterior pectoralis fascia. A pacemaker pocket was formed by blunt dissection anterior to the pectoralis fascia and a vancomycin-soaked sponge was placed in the pocket. An 8.5 Swedish Medtronic lead introducer was placed over the guidewire into the left subclavian vein, the dilator and guidewire were removed and a bipolar active fixation steroid tipped atrial lead was advanced through the introducer into the superior vena cava. A guidewire was placed through the introducer and the introducer was stripped from the lead and guidewire. A 7 Swedish Medtronic lead introducer was placed over the guidewire into the left subclavian vein, the dilator and guidewire were removed. The atrial lead was temporarily positioned in the right ventricle for backup pacing. A C315 His 02 septal sheath was advanced through the introducer over a guidewire and advanced into the right ventricular outflow tract. The guidewire and dilator were removed and the sheath was positioned in a mid septal location. A bipolar active fixation steroid tipped ventricular lead was advanced through the introducer and rotated to advance the screw into the septum. Septal penetration was confirmed by dye injection through the sheath. Pacing and sensing thresholds were evaluated in bipolar configuration and are noted on the data sheet. The septal sheath was stripped away from the lead. The introducer was removed. The atrial lead was then removed from the right ventricle and using a curved stylette the atrial lead was positioned in the region of the atrial appendage and the screw extended fixing the lead in position. Pacing and sensing thresholds were evaluated in bipolar configuration and are recorded on the implant data sheet. Once the leads were in position they were attached to the anterior pectoralis fascia using 2 sutures of 2-0 silk around each lead collar. The vancomycin soaked sponge was removed from the pocket, hemostasis was obtained, the pacemaker was attached to the leads and placed in the pocket with the leads coiled beneath it. The incision was closed with a running double subcutaneous closure of 3-0 Vicryl absorbable suture, followed by running subcuticular skin closure of 4-0 Vicryl absorbable suture. Bacitracin ointment was placed on the incision and a dressing applied. [facility] [place] Electrophysiology codes Indication for Procedure (1) Complete heart block: Pacing Procedure 1: Pacin Insert/Replace Pacer A & V PG Moderate Sedation Codes Moderate Sedation Codes Procedure 1: Sedation/Anesthesia: 65786 Mod Sedation by the same physician;Init15 Min Child Age 5 & Up Procedure 2: Sedation/Anesthesia: 60180 Mod Sedation by the same physician; Ea [id number] Minutes
[2022-07-02] MEDS: LOSARTAN POTASSIUM 25 MG TAB PO SCH (09:19)
--- NOTE | 2022-07-02 09:25 | Hospitalist Progress Note ---
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 PT and OT evaluations ordered (2) Elevated troponin I level: Plan: History of mildly elevated troponin No evidence on EKG or chest pain to suggest ACS Telemetry and Cardiology consults (3) CHI (closed head injury): Plan: Age indeterminate nasal bone irregularity noted on Face CT, with point tenderness over nose, possibly nasal fracture Conservative management (4) Syncope: Plan: Suspect secondary to Complete HB as above (5) Hypertension: Plan: BP normotensive, continue losartan only for now Hydralazine 5mg IV q4h PRN for sBP > 180 (6) Atrial fibrillation: Plan: Paroxysmal Held Xarelto for pacemaker insertion, discuss resuming with Cardiology Plan VTE Prophylaxis - holding Xarelto Diet - heart healthy diet Disposition - PCU Admission and Anticipated Discharge Date Admission Date: July 01, 2022 Subjective No acute events overnight. Patient went for pacemaker this AM, with HR 60s since that time. No complaints at this time including no SOB, chest pain, nausea, abdominal pain. Not lightheaded or dizzy. Review of Systems Review of Systems: All systems reviewed & are unremarkable except as noted in Subjective Physical Exam Constitutional: WD/WN, vitals as above Respiratory: normal respiratory effort, lungs clear to auscultation Cardiovascular: RRR, no murmur, no edema Gastrointestinal (Abdomen): normal bowel sounds, soft, nontender, no hepatosplenomegaly Skin: periocular ecchymosis bilaterally Psychiatric: A+Ox3, euthymic affect Results & Data Results & Data ([facility]) Vital Signs (Past 12 Hours) Vital Signs Temp Pulse Pulse Resp BP Pulse Ox O2 Del Method 07/02/22 09:15 60 18 148/80 H 92 Room Air 07/02/22 09:00 61 18 138/85 93 Room Air 07/02/22 08:45 36.6 C 74 16 145/80 H 93 Room Air 07/02/22 03:12 36.9 C 36 L 16 141/50 H 94 Room Air 07/01/22 22:44 36.6 C 38 L 18 171/67 H 94 Room Air PG Care Time/CCT Total # of Minutes Spent Total Time Spent with Patient: Total time spent is greater than 50% in coordination of care (as documented) at patient's floor/unit and/or counseling patient: Coding Level of Care Code 66836 SUB INP/OBS CARE 3/50MIN Diagnoses Complete heart block I44.2 Elevated troponin I level R77.8 CHI (closed head injury) S09.90XA Syncope R55 Encounter type: initial encounter Hypertension I10 Atrial fibrillation I48.0 Atrial fibrillation type: paroxysmal (4) Syncope Encounter type: initial encounter (6) Atrial fibrillation Atrial fibrillation type: paroxysmal Qualified Code(s): I48.0 - Paroxysmal atrial fibrillation
--- NOTE | 2022-07-02 09:30 | Electrocardiogram Report ---
Test Reason : Blood Pressure : / mmHG Vent. Rate : 031 BPM Atrial Rate : 032 BPM P-R Int : 000 ms QRS Dur : 138 ms QT Int : 646 ms P-R-T Axes : 061 013 -19 degrees QTc Int : 464 ms Sinus bradycardia with A-V dissociation and Idioventricular rhythm Abnormal ECG No previous ECGs available Confirmed by Héctor Wolf ([id number]) on 07/02/2022 9:29:54 AM Referred By: Casper Villalobos Confirmed By:Héctor Wolf
[2022-07-02] MEDS: ACETAMINOPHEN W/CODEINE #3 1 TAB PO PRN ×2 (09:37→19:42)
[2022-07-02] MEDS ORDERED: PERFLUTREN LIPID MICROSPHERE (DEFINITY) IV ONE (10:50)
[2022-07-02] MEDS: ACETAMINOPHEN 325 MG TAB PO PRN (13:18)
--- NOTE | 2022-07-02 14:33 | Electrocardiogram Report ---
Test Reason : Blood Pressure : / mmHG Vent. Rate : 060 BPM Atrial Rate : 060 BPM P-R Int : 146 ms QRS Dur : 138 ms QT Int : 530 ms P-R-T Axes : 095 144 115 degrees QTc Int : 530 ms AV dual-paced rhythm Abnormal ECG When compared with ECG of 02-JUL-2022 06:25, (unconfirmed) Electronic ventricular pacemaker has replaced Complete HB Vent. rate has increased BY 24 BPM Confirmed by Aime Diop ([id number]) on 07/02/2022 2:33:02 PM Referred By: Casper Villalobos Confirmed By:Aime Diop
[2022-07-03 07:31] LABS: Hematocrit (blood only) 36.8 % (37.0-47.0); Hemoglobin 12.5 g/dl (12.0-16.0); Mean Corpuscular Hemoglobin 31.7 pg (25.0-34.0); Mean Corpuscular Volume 93.4 fL (80.0-100.0); Mean Platelet Volume 10.1 fL (9.4-12.4); Platelet Count 196 K/uL (130-400); RDW Coefficient of Variation 13.9 % (11.5-14.5); RDW Standard Deviation 47.5 fL (36.4-46.3); Red Blood Count 3.94 M/uL (4.20-5.40); White Blood Count 6.29 K/ul (4.8-10.8)
[2022-07-03] MEDS: ACETAMINOPHEN 325 MG TAB PO PRN ×2 (07:35→15:06)
[2022-07-03] MEDS: LOSARTAN POTASSIUM 25 MG TAB PO SCH (08:24)
[2022-07-03 08:25] LABS: Creatinine Clr Calc Pharmacy 50.6 ml/min; Est GFR (African American) 76.3 ml/min; Est GFR (Non-African American) 65.8 ml/min; Potassium 4.1 mmol/L (3.5-5.1)
--- NOTE | 2022-07-03 08:55 | XRay Report ---
TWO VIEW CHEST CLINICAL HISTORY: Pacemaker implantation. FINDINGS: PA and lateral chest radiographs are compared to study dated 07/01/2022. A 2-lead cardiac pa cemaker has been placed and partially obscures the left mid chest. Leads project over the right atria l appendage and right ventricle. The heart is enlarged noting atherosclerotic calcification of the th oracic aorta. The pulmonary vasculature is noncongested. Chronic interstitial thickening is similar t o previous. Scarring/atelectasis is noted at both lung bases. The nodular opacity question of the rig ht lung base on yesterday's examination is no longer identified and is likely artifactual. No airspac e consolidation or pleural effusion is identified. There is no pneumothorax. The skeletal structures are osteopenic. The bony thorax appears intact. Surgical clips project over the chest wall bilaterall y. IMPRESSION: 1. A 2-lead cardiac pacemaker has been implanted as above. No pneumothorax is seen post procedure. 2. Cardiomegaly without radiographic evidence of congestive failure. 3. There is no airspace consolidation or pleural effusion. ACT 112: Negative or not required by law. Electronically signed by: Chaz Nunn M.D. 07/03/2022 8:54 AM
--- NOTE | 2022-07-03 09:02 | Post Anesthesia Assessment ---
Date of Service July 03, 2022 Post Sedation Assessment Vital Signs Temp Pulse Pulse Resp BP Pulse Ox O2 Del Method 07/03/22 07:39 64 07/03/22 07:17 36.6 C 60 18 137/85 93 Room Air 07/02/22 23:00 60 07/03/22 03:11 36.4 C L 61 18 154/81 H 95 Room Air 07/02/22 22:56 36.7 C 61 18 124/75 94 Room Air 07/02/22 19:34 36.7 C 61 18 125/58 L 96 Room Air 07/02/22 15:41 60 07/02/22 14:58 36.6 C 82 18 122/70 93 Room Air 07/02/22 11:45 36.5 C 62 16 129/77 92 Room Air 07/02/22 11:30 60 16 122/74 92 Room Air 07/02/22 10:30 36.4 C L 60 16 125/65 96 Room Air 07/02/22 08:45 62 07/02/22 10:15 61 16 123/73 92 Room Air 07/02/22 09:43 61 16 131/76 95 Room Air 07/02/22 09:30 62 16 131/82 97 Room Air 07/02/22 09:15 60 18 148/80 H 92 Room Air 07/02/22 09:00 61 18 138/85 93 Room Air 07/02/22 08:45 36.6 C 74 16 145/80 H 93 Room Air Discharge Sedation Level of Care: Fast Track Phase II Post Sedation Plan On clinical assessment, the patient appears to have tolerated the sedation without complications. Patient is recovering as anticipated. Patient will continue to be monitored by nursing and may be discharged when sedation discharge criteria are met per below protocol. Upon Completions of procedure up to 15 minutes continue every 5 minute vital signs and the P.A.R. score; then discharge to a Phase I or Fast Track to Phase II per the following guidelines: * Discharge Patient to appropriate Phase II area if PAR is 8 or greater or return to pre- procedure baseline. The post - procedure orders will be as directed. * If PAR score is less than 8 or not return to pre-procedure baseline then patient will follow Phase I monitoring till PAR is reached for Phase II. The Phase I may be done in procedure room or may call to secure a Phase I area. * If naloxone or flumazenil are used for reversal, hold in Phase I for continued monitoring from when last reversal dose was given for a minimum of 60 minutes or longer pending the nurse and/or physician discretion of patient condition before discharge to Phase II. Please call the Sedation Physician to re-evaluate and complete post-note for discharge to Phase II area. Do NOT discharge from procedure sedation or Phase 1 until post- sedation evaluation note is complete by procedure /sedation MD Sedation Discharge Instructions to be given to the patient at discharge to home.
--- NOTE | 2022-07-03 09:08 | Cardiology Progress Note ---
Date of Service July 03, 2022 Assessment & Plan (1) Syncope: (2) Complete heart block: (3) Elevated troponin I level: (4) Chronic anticoagulation: (5) Atrial fibrillation: (6) Status post placement of cardiac pacemaker: Plan 1. Syncope: Her syncope is evidently due to complete heart block, probably a delay in initiation of her escape rhythm was the specific cause as she was hemodynamically stable and complete heart block with a ventricular escape and a heart rate in the 30s. 2. Complete heart block: She presented in complete heart block, there or no clear reversible reasons, this has remained and she is on no medications to cause it. 3. Paroxysmal atrial fibrillation: She has a history of paroxysmal atrial fibrillation but is not on rate controlling medications and I suspect her burden is quite low. It has not been identified recently as near as I can tell from the chart. I do not know how the initial identification was made. She is not in atrial fibrillation now. My recommendation would be to use the pacemaker to monitor for recurrence so that we know her burden before resuming anticoagulation. 4. Anticoagulation: She was taking Xarelto, however it sounds as though she was on Eliquis initially which was discontinued due to cost. That was a long time ago and may not be a factor now. I would recommend monitoring for atrial fibrillation and if we need to anticoagulate I would start Eliquis. That would be a future consideration. 5. Elevated troponin: Her troponin was mildly elevated and stable, this would be due to her low heart rate, there is no evidence of an acute ischemic event. 6. Pacemaker implantation: Postop day #1: The site looks good, chest x-ray shows good lead position and no pneumothorax, pacemaker measurements are good. She should be stable for discharge. I will arrange an office visit for wound check around Monday, the office should call her Monday. Admission and Anticipated Discharge Date Admission Date: July 01, 2022 Physical Exam Physical Exam: The surgical site is clean and dry, no bleeding or discharge. Expected ecchymosis. Results & Data ([facility]) Vital Signs (Past 12 Hours) Vital Signs Temp Pulse Pulse Resp BP Pulse Ox O2 Del Method 07/03/22 07:39 64 07/03/22 07:17 36.6 C 60 18 137/85 93 Room Air 07/02/22 23:00 60 07/03/22 03:11 36.4 C L 61 18 154/81 H 95 Room Air 07/02/22 22:56 36.7 C 61 18 124/75 94 Room Air Laboratory Results Cardiac Enzymes 07/02/22 Range/Units 11:57 Troponin I High Sens 568.6 H* (0-14) pg/ml CBC 07/03/22 Range/Units 06:05 WBC 6.29 (4.8-10.8) K/ul RBC 3.94 L (4.20-5.40) M/uL Hgb 12.5 (12.0-16.0) g/dl Hct 36.8 L (37.0-47.0) % Plt Count 196 (130-400) K/uL Comprehensive Metabolic Panel 07/03/22 Range/Units 06:05 Sodium 141 (136-145) mmol/L Potassium 4.1 (3.5-5.1) mmol/L Chloride 106 (98-107) mmol/L Carbon Dioxide 30 (21-32) mmol/L BUN 16 (6-23) mg/dl Creatinine 0.80 (0.6-1.2) mg/dl Glucose 93 (70-99(Fasting)) mg/dl Calcium 8.0 L (8.5-10.1) mg/dl Intake and Output 07/02/22 07/03/22 07/03/22 21:59 06:59 14:59 Intake Total Output Total Balance Intake: Oral Output: Urine Other # Bowel Movements Other: Other Intake Source Weight Weight Measurement Method Diagnostic Findings 1. Postop ECG: Appropriate pacemaker function with excellent left bundle branch base configuration 2. Telemetry: Normal dual-chamber pacemaker function 3. Chest x-ray: Excellent lead position, no pneumothorax 4. Pacemaker evaluation: Excellent pacing and sensing characteristics PG Care Time/CCT Total # of Minutes Spent Total Time Spent with Patient: Total time spent is greater than 50% in coordination of care (as documented) at patient's floor/unit and/or counseling patient: Coding Level of Care Code 70770 Post Operative Follow-Up Diagnoses Syncope R55 Encounter type: initial encounter Complete heart block I44.2 Elevated troponin I level R77.8 Chronic anticoagulation Z79.01 Atrial fibrillation I48.0 Atrial fibrillation type: paroxysmal Status post placement of cardiac pacemaker Z95.0 CPT Codes Dual Lead Pacemaker System - 23268 ([id number]) (1) Syncope Encounter type: initial encounter (5) Atrial fibrillation Atrial fibrillation type: paroxysmal Qualified Code(s): I48.0 - Paroxysmal atrial fibrillation
--- NOTE | 2022-07-03 10:23 | Electrocardiogram Report ---
Test Reason : Blood Pressure : / mmHG Vent. Rate : 036 BPM Atrial Rate : 062 BPM P-R Int : 000 ms QRS Dur : 134 ms QT Int : 612 ms P-R-T Axes : 052 -32 -04 degrees QTc Int : 473 ms Sinus rhythm with complete heart block and Idioventricular rhythm Left axis deviation Right bundle branch block Possible Inferior infarct , age undetermined Abnormal ECG When compared with ECG of 01-JUL-2022 15:59, No significant change was found Confirmed by Aime Diop ([id number]) on 07/03/2022 10:23:09 AM Referred By: Casper Villalobos Confirmed By:Aime Diop
[2022-07-03] MEDS ORDERED: SODIUM CHLORIDE 0.9% 1000ML 500 ML IV ONE (10:30)
--- NOTE | 2022-07-03 11:23 | Discharge Summary ---
Discharge Summary Date of Service July 03, 2022 Admission HPI Per Admitting Provider Yessi Martinez is an 86 year old female who presents to the ER due to syncope. Initial episode occurred while on the toilet yesterday around midday. Martin dizzy prior to losing consciousness and fell flat on her face. When she came to she reports there was a lot of blood. She managed to call her son who helped her get up and cleaned up. She arranged an appointment with her PCP office today but while in the car on the way there she had a further loss of consciousness episode and a convulsion followed by nausea following the episode. On arrival at her PCP office EMS were called and brought her to the ER. Only recent medication change has been her first injection of Prolia was on Monday afternoon. No current infection signs or symptoms. No chest pain or shortness of breath. In the ER EKG was concerning for complete heart block however she was asymptomatic while in bed. ER provider discussed with Dr Wolf and no plan for temporary pacing wire at this time given she is stable. Of note she had a monitor in December 2021 showing 3 second pauses due to non-conducted p waves at that time. She is on Xarelto for paroxysmal atrial fibrillation which she last took around 9am yesterday. Admission Exam Per Admitting Provider Constitutional: WD/WN, vitals as above Eyes: periorbital ecchymosis ENMT: nasal ecchymosis with pain on palpation of nasal bridge Respiratory: normal respiratory effort, lungs clear to auscultation Cardiovascular: Rate/Rhythm: regular rhythm and + bradycardic Heart Sounds: no murmur Extremities: normal capillary refill; no calf tenderness and no pedal edema Gastrointestinal (Abdomen): normal bowel sounds, soft, nontender, no hepatosplenomegaly Musculoskeletal: no cyanosis or clubbing, extremities motor strength 5/5 Skin: no rashes, warm and dry Neurologic: moves all extremities and awake; not confused Psychiatric: A+Ox3, euthymic affect Principal Dx & Hospital Course #1 = Principal Diagnosis (1) 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 Wolf, HR 60s since that time and EKG post-pacer with paced rhythm in 60s Cardiology consulted and appreciate intervention, case discussed with Dr. 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 PT and OT evaluations ordered, did not recommend inpatient rehab, discharged home with help from relatives and home health referral (2) Elevated troponin I level: History of mildly elevated troponin No evidence on EKG or chest pain to suggest ACS Telemetry and Cardiology consults as above (3) CHI (closed head injury): Age indeterminate nasal bone irregularity noted on Face CT, with point tenderness over nose, possibly nasal fracture Conservative management (4) Syncope: Suspect secondary to Complete HB as above (5) Hypertension: Resume home medications on discharge (6) Atrial fibrillation: Cardiology will monitor AFib burden with pacemaker interrogation in the future, deferring resuming Xarelto until this is evaluated Discharge Exam Constitutional WD/WN, vitals as above Cardiovascular RRR, no murmur, no edema Skin ecchymosis to upper face Psychiatric A+Ox3, euthymic affect Updated Medication List Medication Instructions Recorded Confirmed Type losartan 25 mg tablet 25 mg PO DAILY #90 tabs 07/12/21 07/01/22 Rx anastrozole 1 mg tablet 1 mg PO DAILY #90 tabs 07/14/21 07/01/22 Rx melatonin 12 mg tablet mg PO .qhs 03/22/22 07/01/22 History hydrochlorothiazide 25 mg tablet See Rx Instructions .Route 04/05/22 07/01/22 Rx .COMPLEX #45 tabs Hospital Stay Data Consultations 07/01/22 17:16 Consult Cardiology Stat 07/01/22 17:17 ED Decision to Admit Stat Procedures Performed Operation Date: 07/02/22 07:00 Actual Procedures p Pacer with A/V Leads (Dual) - Héctor Wolf MD Diagnostic Imagining Performed 07/01/22 16:07 CT cervical spine wo con Stat CT facial bones wo con Stat CT head/brain wo con Stat 07/02/22 06:45 EP Lab Images for PACS ONCE Discharge Instructions Given to Patient (Per Discharging Provider) You were admitted after a fall and passing out event. You were found to have abnormal conduction of the heart called heart block. We are not sure why this occurred, but it required a pacemaker, which Dr. Wolf placed. After that your heart rate improved, and you felt better than you did before admission. You were felt to be safe for discharge home with follow up with Dr. Wolf (his number is provided above) and your family doctor. Dr. Wolf recommends you stop taking the Xarelto for a brief period, and they will monitor your heart with the pacemaker. If you are still having AFib, they will tell you to restart your blood thinner medicine. Total Time Total Time Spent Total Time Spent (In Minutes): 40 min Coding Level of Care Code 93080 INP/OBS DISCH >30 MIN Diagnoses Complete heart block I44.2 Elevated troponin I level R77.8 CHI (closed head injury) S09.90XA Syncope R55 Encounter type: initial encounter Hypertension I10 Atrial fibrillation I48.0 Atrial fibrillation type: paroxysmal
== END 2022-07-03 15:40 | disposition home health service (06) | DRG 244 ==
LOC: ED 15:53 → 2S 17:16 → SUATTDRO 17:16 → 2S 18:00